=== PATIENT | male | born 1960 | race Caucasian/White ===

== ENCOUNTER 2017-05-11 08:14 | Inpatient (IN) | payer OTHER ==
--- NOTE | 2017-05-11 08:26 | CPEKG ---
Heart Rate: 74 RR Interval: 811 P-R Interval: 192 QRSD Interval: 108 QT Interval: 424 QTC Interval: 471 P [place]: 75 QRS [place]: 95 T Wave [place]: 93 EKG Severity - ABNORMAL ECG - EKG Impression: SINUS RHYTHM EKG Impression: INFEROPOSTERIOR INFARCT, ACUTE Electronically Signed By: Adina Manning 11-May-2017 15:05:16
--- NOTE | 2017-05-11 08:26 | EDPHY ---
H & P Time Seen by Provider: 05/11/17 08:20 HPI/ROS: CHIEF COMPLAINT: Chest pain, dizziness HISTORY OF PRESENT ILLNESS: 56-year-old male with a history of hyperlipidemia presents with chest pain and dizziness. Just prior to arrival he was taking a shower after a workout, when he developed moderate chest discomfort, associated with dizziness. 911 was called. On EMS arrival, EKG revealed a an inferior SC. Cardiac alert was called. He was given aspirin 324 mg orally prior to arrival. He continues to have mild chest discomfort and persistent dizziness. Feels somewhat better. No prior history of cardiac disease. REVIEW OF SYSTEMS: Constitutional: No fever, no chills Eyes: No visual changes ENT: No sore throat Respiratory: No cough, no shortness of breath Gastrointestinal: no vomiting, no abdominal pain Genitourinary: no dysuria Musculoskeletal: No leg pain or swelling Skin: No rash Neurological: No headache, no weakness Psychiatric: Anxiety Past Medical/Surgical History: Hyperlipidemia Social History: Works at [employer] Physical Exam: General Appearance: Alert, pale, appears in pain Eyes: Pupils equal and round, no conjunctival pallor ENT, Mouth: Mucous membranes moist Neck: Normal inspection Respiratory: Lungs are clear to auscultation Cardiovascular: Regular rate and rhythm Gastrointestinal: Abdomen is soft and nontender Neurological: A&O, nonfocal exam Skin: Warm and dry Extremities: Nontender, no pedal edema Psychiatric: Mood and affect normal Constitutional: Initial Vital Signs Heart Rate 72 05/11/17 08:15 Respiratory Rate 18 05/11/17 08:15 Blood Pressure 112/76 05/11/17 08:15 O2 Sat (%) 99 05/11/17 08:15 O2 Delivery Mode Room Air Allergies/Adverse Reactions: No Allergies [NKDA] Allergy (Verified 05/11/17 08:52) Home Medications: Medication Instructions Recorded [place]-3 Fatty Acids [Fish Oil 1000 1,000 mg PO DAILY 05/11/17 mg (*)] Acetaminophen [Tylenol 325mg (*)] 650 mg PO Q4HRS PRN tab 05/13/17 Aspirin EC [Aspirin EC 81 mg (*)] 81 mg PO DAILY tab 05/13/17 Atorvastatin Calcium [Lipitor 40 40 mg PO DAILY #30 tab 05/13/17 mg (*)] Carvedilol [Coreg (*)] 3.125 mg PO BIDMEAL #60 tab 05/13/17 Ticagrelor [Brilinta] 90 mg PO BID #60 tab 05/13/17 Medical Decision Making - Diagnostics EKG Interpretation: EKG interpreted by me reveals ST segment elevation in the inferior leads and ST segment depression in leads V1 through V4, consistent acute inferoposterior SC. ED Course/Re-evaluation: This patient presented as a cardiac alert. Dr. Nolasco and I met the patient on his arrival. Vital signs normal, continues to have persistent chest pain. EKG pre-hospital reveals an acute SC. Repeat EKG in the ED is unchanged. The patient was taken to the emergently to the cardiac catheterization lab within 10 min of his arrival. He remained stable throughout his brief emergency department stay. I spent a total of 15 minutes of critical care time in obtaining history, performing a physical exam, bedside monitoring of interventions, collecting and interpreting tests and discussion with consultants but not including time spent performing procedures. Organ at risk: heart Differential Diagnosis: Differential diagnosis includes though it is not limited to pneumonia, pneumothorax, pulmonary embolism, aortic dissection, pericarditis, acute coronary syndrome. - Data Points Medications Given: Discontinued Medications Acetaminophen (Tylenol) 650 mg PO Q4HRS PRN PRN Reason: Pain, Mild/Fever, Can Take PO Stop: 11/08/17 23:11 Last Admin: 05/12/17 23:43 Dose: 650 mg Aspirin Buffered (Aspirin Ec) 325 mg PO ONCE ONE Stop: 05/11/17 09:38 Last Admin: 05/11/17 12:21 Dose: 325 mg Aspirin Buffered (Aspirin Ec) 81 mg PO DAILY [facility] Stop: 11/08/17 08:59 Last Admin: 05/13/17 08:24 Dose: 81 mg Atorvastatin Calcium (Lipitor) 40 mg PO DAILY [facility] Stop: 11/08/17 08:59 Last Admin: 05/13/17 08:24 Dose: 40 mg Carvedilol (Coreg) 3.125 mg PO BIDMEAL [facility] Stop: 11/07/17 15:29 Last Admin: 05/13/17 08:24 Dose: 3.125 mg Sodium Chloride (Ns) 1,000 mls @ 75 mls/hr IV AD [facility] Stop: 11/07/17 11:29 Last Admin: 05/11/17 10:00 Dose: 1,000 mls Eptifibatide (Integrilin 2 Mg/Ml (Premix)) 81 mls @ 4.5 mls/hr IV AD [facility] Stop: 05/12/17 03:00 Last Admin: 05/11/17 22:17 Dose: 81 mls Influenza Virus Vaccine Quadrival (Fluarix Quad ) 0.5 ml IM .ONCE ONE Stop: 05/12/17 10:01 Last Admin: 05/12/17 10:22 Dose: 0.5 ml Pneumococcal Polyvalent Vaccine (Pneumovax 23) 0.5 ml IM .ONCE ONE Stop: 05/12/17 09:32 Last Admin: 05/12/17 10:21 Dose: 0.5 ml Ticagrelor (Brilinta) 180 mg PO ONCE ONE Stop: 05/11/17 09:38 Last Admin: 05/11/17 12:20 Dose: 180 mg Ticagrelor (Brilinta) 90 mg PO BID [facility] Stop: 11/07/17 21:37 Last Admin: 05/13/17 08:24 Dose: 90 mg Departure - Departure Disposition: [facility] Acute Clinical Impression: Acute coronary syndrome Condition: Good
[2017-05-11] MEDS ORDERED: BIVALIRUDIN 250 MG/5 ML VIAL IV ONE (08:31)
[2017-05-11] MEDS ORDERED: ATROPINE SULFATE 1 MG/10 ML SYR ONE (08:43)
[2017-05-11] MEDS ORDERED: EPTIFIBATIDE 200 MG/100 ML BOTTLE IV ONE (08:45)
[2017-05-11] MEDS ORDERED: NITROGLYCERIN 1,500 MCG/15 ML VIAL MISC ONE (08:58)
[2017-05-11 09:03] LABS: % IMMATURE GRANULYOCYTES 0.5 % (0.0-1.1); ABSOLUTE IMMATURE GRANULOCYTES 0.03 10^3/uL (0.00-0.10); ADD DIFF? NO; ADD MORPH? NO; ADD SCAN? NO; ATYPICAL LYMPHOCYTE FLAG 10 (0-99); FRAGMENT RBC FLAG 0 (0-99); HEMOGLOBIN 14.4 g/dL (13.7-17.5); LEFT SHIFT FLG 0 (0-99); LIPEMIA HEMOLYSIS FLAG 90 (0-99); MEAN CELL HEMOGLOBIN 32.8 pg (27.9-34.1); MEAN CELL VOLUME 91.1 fL (81.5-99.8); MEAN PLATELET VOLUME 8.4 fL (8.7-11.7); PLATELET CLUMPS FLAG 0 (0-99); PLATELET COUNT 216 10^3/uL (150-400); RED BLOOD CELL COUNT 4.39 10^6/uL (4.40-6.38); RED CELL DISTRIBUTION WIDTH 11.7 % (11.5-15.2)
[2017-05-11] MEDS ORDERED: IOPAMIDOL (ISOVUE-370) 150 ML BTL IV ONE ×2 (09:06→09:35)
[2017-05-11 09:19] LABS: INR 4.23 (0.83-1.16); PROTIME(PATIENT) 40.3 SEC (12.0-15.0)
[2017-05-11 09:21] LABS: APTT 99.8 SEC (23.0-38.0)
[2017-05-11] MEDS ORDERED: TICAGRELOR 90 MG TAB ONE (09:30)
[2017-05-11] MEDS ORDERED: fentaNYL 100 MCG/2 ML INJ ONE (09:34)
[2017-05-11] MEDS ORDERED: LIDOCAINE 1% 300 MG/30 ML SDV ONE (09:34)
[2017-05-11] MEDS ORDERED: MIDAZOLAM 2 MG/2 ML VIAL ONE (09:35)
[2017-05-11] MEDS ORDERED: TEMAZEPAM 15 MG CAP PO PRN (09:37)
[2017-05-11] MEDS ORDERED: ONDANSETRON 4 MG/2 ML VIAL IVP PRN (09:37)
[2017-05-11] MEDS ORDERED: NITROGLYCERIN 0.4 MG BTL SL PRN (09:37)
[2017-05-11] MEDS ORDERED: TICAGRELOR 90 MG TAB PO ONE (09:37)
[2017-05-11] MEDS ORDERED: ASPIRIN EC 325 MG TAB PO ONE (09:37)
[2017-05-11] MEDS ORDERED: ATROPINE SULFATE 1 MG/10 ML SYR IVP PRN (09:37)
[2017-05-11] MEDS ORDERED: LORazepam 2 MG/ML INJ IVP PRN (09:37)
[2017-05-11 09:41] LABS: ALANINE AMINOTRANSFERASE 25 IU/L (21-72); ALBUMIN 3.2 g/dL (3.5-5.0); ALKALINE PHOSPHATASE 41 IU/L (38-126); ANION GAP 18 mEq/L (8-16); ASPARTATE AMINOTRANSFERASE 19 IU/L (17-59); BILIRUBIN,TOTAL 0.4 mg/dL (0.1-1.4); CALCIUM 8.3 mg/dL (8.5-10.4); CARBON DIOXIDE 17 mEq/l (22-31); CHLORIDE 101 mEq/L (97-110); CREATININE 0.9 mg/dL (0.7-1.3); GLOMERULAR FILTRATION RATE > 60; GLUCOSE 146 mg/dL (70-100); POTASSIUM 3.9 mEq/L (3.5-5.2); SODIUM 136 mEq/L (134-144); TOTAL PROTEIN 5.4 g/dL (6.3-8.2)
[2017-05-11 09:46] LABS: TROPONIN I < 0.012 ng/mL (0.000-0.034)
--- NOTE | 2017-05-11 10:22 | CPIP ---
[f rep st] INVASIVE CARDIAC PROCEDURE DATE OF PROCEDURE: 05/11/2017 PROCEDURE PERFORMED: 1. Coronary angiography. 2. Left ventricular end-diastolic pressure. 3. Stenting of right coronary artery with Synergy drug-eluting stent. INDICATIONS: Acute inferior ST segment elevation and myocardial infarction. ACCESS: The patient was prepped and draped in a sterile fashion. 1% lidocaine was used to anestheti ze the right inguinal region. A 6-Gambian introducer sheath was placed selectively into the right com mon femoral artery via modified Seldinger technique. A 6-Gambian introducer sheath was placed selecti vely into the right common femoral vein via modified Seldinger technique. CORONARY ANGIOGRAPHY: A 6-Gambian JL4 was advanced to the left main coronary artery, and images obtai ana. The left main coronary artery bifurcated into the LAD and circumflex coronary arteries. The le ft main coronary artery appeared normal. The left anterior descending coronary artery gave rise to 2 diagonal branches. The left anterior anthony cending coronary artery was free of any significant disease. In the midvessel, a myocardial bridge c ould be appreciated. The diagonal arteries were free of any significant disease. Circumflex coronary artery was a moderate-sized vessel. The circumflex coronary artery gave rise to 3 branches. The circumflex coronary artery appeared normal. A 6-Gambian JR4 catheter was advanced to the right coronary artery, and images obtained. The right co ronary artery was 100% occluded in the midvessel. Left ventricular end-diastolic pressure: A 6-Gambian pigtail catheter was advanced into the left vent ricle, and left ventricular end-diastolic pressure obtained. Left ventricular end-diastolic pressure was 24 mmHg; however, it was likely 20 mmHg given drifting of 0. Left ventriculography was not perf ormed in an effort to spare contrast. Percutaneous coronary intervention of the right coronary artery: A 6-Gambian JR4 was advanced to the right coronary artery, and images obtained. Angiography confirmed the presence of a total occlusion in the midvessel. A loose wire was placed in the distal vessel, and position verified by angiography . A 2.5 x 15 Emerge balloon was used to pre-dilate the lesion, followed by angiography that demonstr ated congregation of HORACE-3 flow with significant residual stenosis. A 3.5 x 24 Synergy drug-eluting stent was then placed across the lesion and deployed, followed by angiography demonstrating complete stent expansion and HORACE-3 flow. The stent was post-dilated with a 4.5 x 15 noncompliant balloon, fo llowed by a 5.0 x 15 noncompliant balloon. Followup angiography demonstrating HORACE-3 flow. No resid ual stenosis. In the right posterolateral branch, there was evidence of distal embolization of throm bus. The loose wire was placed in the right posterolateral branch. An attempt was made at thrombect jumana using a Pronto catheter. The Pronto catheter would not reach the distal thrombus. It was decide d to halt intervention and manage with antithrombotic therapy. COMPLICATIONS: None. CONCLUSIONS: 1. Single-vessel coronary artery disease. 2. Status post successful percutaneous coronary intervention of the right coronary artery using Syne rgy drug-eluting stent. /[id number]/MODL
--- NOTE | 2017-05-11 10:38 | GCON ---
[f rep st] CONSULTATION DATE OF CONSULTATION: 05/11/2017 CHIEF COMPLAINT: We have been asked by Dr. Manning to evaluate the patient with an acute inferior ST-se gment elevation myocardial infarction. HISTORY OF PRESENT ILLNESS: The patient is a 56-year-old gentleman with risk factors including age a nd hyperlipidemia, who presents with a chief complaint of chest pain. The patient was in his usual [facility] until the morning of admission, when he went to do his usual workout. Following his [facility] workout, he took a shower, where he began to feel lightheaded and dizzy, followed by the onset of chest pressure and diaphoresis. When his symptoms did not resolve, he called EMS and was brought to the emergency department for further evaluation. In the emergency department, he had an EKG perform ed, demonstrating acute inferior ST-segment elevation myocardial infarction. The patient denies a hi story of hypertension, diabetes and tobacco use. He does report a family history of coronary artery disease at a later age onset. PAST MEDICAL HISTORY: Hyperlipidemia. MEDICATIONS: None. ALLERGIES: No known drug allergies. SOCIAL HISTORY: The patient does not smoke. FAMILY HISTORY: Notable for coronary artery disease at a later age onset, as well as hypertension an d diabetes. REVIEW OF SYSTEMS: Ten-point review of systems was not obtained given acute nature of illness. PHYSICAL EXAMINATION: GENERAL: The patient was resting in bed. He appeared to be in moderate distr ess. VITAL SIGNS: Temperature was not obtained. Pulse was 72, blood pressure 112/76. SaO2 was 99% on room air. LUNGS: Clear to auscultation bilaterally. CARDIOVASCULAR: Regular rate and rhythm. S1, S2. Positive S4. EXTREMITIES: No clubbing, cyanosis, or edema. 2+ dorsalis pedis pulses. EKG demonstrates sinus rhythm, inferior ST-segment elevation with reciprocal changes across the preco rdium. Laboratory has not returned yet. ASSESSMENT AND PLAN: The patient is a 56-year-old gentleman with an acute inferior ST-segment elevat ion myocardial infarction. Reviewed risks and benefits of cardiac catheterization to further evaluat e his condition. Will arrange to have this performed emergently. /[id number]/MODL
--- NOTE | 2017-05-11 11:21 | CPEKG ---
Heart Rate: 70 RR Interval: 857 P-R Interval: 204 QRSD Interval: 102 QT Interval: 420 QTC Interval: 454 P [place]: 80 QRS [place]: -27 T Wave [place]: 56 EKG Severity - ABNORMAL ECG - EKG Impression: SINUS RHYTHM EKG Impression: PROBABLE INFERIOR INFARCT, AGE INDETERMINATE Electronically Signed By: Jamaal Yu 11-May-2017 23:11:51
[2017-05-11] MEDS ORDERED: EPTIFIBATIDE 100 ML IV SCH ×2 (11:30→16:30)
[2017-05-11] MEDS ORDERED: NS 1,000 ML IV SCH (11:30)
[2017-05-11 13:23] LABS: ANION GAP 9 mEq/L (8-16); CALCIUM 8.7 mg/dL (8.5-10.4); CARBON DIOXIDE 22 mEq/l (22-31); CHLORIDE 104 mEq/L (97-110); CREATININE 0.8 mg/dL (0.7-1.3); GLOMERULAR FILTRATION RATE > 60; GLUCOSE 97 mg/dL (70-100); POTASSIUM 4.6 mEq/L (3.5-5.2); SODIUM 135 mEq/L (134-144)
[2017-05-11 13:59] LABS: CK-MB INTERPRETATION POSITIVE (NEGATIVE)
[2017-05-11] MEDS: CARVEDILOL 3.125 MG TAB PO SCH ×2 (15:32→21:06)
--- NOTE | 2017-05-11 16:18 | ECHO ---
[email or web address] [address] [address] Main: [phone] Fax: Transthoracic Echocardiogram Name: NATALIO CHAUHAN MR#: [id number] Study Date: 05/11/2017 Study Time: 01:59 PM Date of : 1960 Age: 56 year(s) Height: 180.3 cm (71 in.) Weight: 70.31 kg (155 lb.) BSA: 1.89 m2 Gender: Male Examination: Echo Indication: Chest pain/Eval LV function Image Quality: Contrast: Requested by: Damian Abdul BP: 113 mmHg/85 mmHg Heart Rate: Rhythm: Indication: Chest pain/Eval LV function Procedure Staff Business Continuity Planner: Mariana Haile Reading Physician: Damian Abdul Requesting Provider: Conclusions: Normal size left ventricle. The ejection fraction is estimated to be 45-50 %. Basal/mid inferior and posterior segments are hypokinetic.. The mitral valve is normal in appearance and function. Trivial mitral valve regurgitation. The aortic valve is normal in appearance and function. No old studies for comparison. Measurements: Chambers Valvular Assessment AV/MV Valvular Assessment TV/PV Normal Normal Normal Name Value Range Name Value Range Name Value Range Ao Linda (MM): 3.7 cm (2.2 cm-3.7 AV meanP mmHg ( - ) cm) MV E Vmax: 0.43 m/s ( - ) IVSd (2D): 0.7 cm (0.6 cm-1.1 MV A Vmax: 0.49 m/s ( - ) cm) MV E/A: 0.88 ( - ) LVDd (2D): 4.8 cm (4.2 cm-5.9 cm) LVDs (2D): 3.1 cm (2.1 cm-4 cm) LVPWd (2D): 0.8 cm (0.6 cm-1 cm) LVEF (BP): 60 % (>=55 %) EF Range: 45-50 % Continued Measurements: Chambers Valvular Assessment AV/MV Name Value Name Value LADs Lon.5 cm MV E/E' Septal: 6.60 Patient: NATALIO CHAUHAN Study Date: 05/11/2017 Page 1 of 2 01:59 PM LA Area: 13.2 cm2 MV E/E' Lateral: 4.30 Additional Vessels Name Value Ao Ascendin.1 cm Findings: Left Ventricle: Normal size left ventricle. No LV hypertrophy. The ejection fraction is estimated to be 45-50 %. Basal/mid inferior and posterior segments are hypokinetic.. Right Ventricle: Normal size right ventricle. Left Atrium: The left atrium is normal in size. Right Atrium: The right atrium is normal in size. Mitral Valve: The mitral valve is normal in appearance and function. Trivial mitral valve regurgitation. Aortic Valve: The aortic valve is normal in appearance and function. Tricuspid Valve: The tricuspid valve is normal in appearance and function. Trivial to mild tricuspid valve regurgitation. Pulmonic Valve: The pulmonic valve is normal in appearance and function. Aorta: The aorta is normal. Pericardium: Trivial anterior pericardial effusion. (No Signature Object) Patient: NATALIO CHAUHAN Study Date: 05/11/2017 Page 2 of 2 01:59 PM [id number]
[2017-05-11] MEDS ORDERED: CARVEDILOL 3.125 MG TAB PO SCH (18:00)
--- NOTE | 2017-05-11 20:41 | GCON ---
[f rep st] CONSULTATION PULMONARY/CRITICAL CARE CONSULTATION DATE OF CONSULTATION: 05/11/2017 REFERRING PHYSICIAN: Damian Nolasco MD REASON FOR REFERRAL: Evaluation and management of metabolic acidosis in the setting of an acute myoc ardial infarction. HISTORY: The patient is a 56-year-old gentleman who was in his usual state of excellent health when this morning he had the onset of lightheadedness and dizziness followed by chest pressure and diaphor esis following exercise and a shower. He was brought to the emergency department for further evaluati on where he was found to have an acute inferior ST-segment elevation myocardial infarction. He was ta laina to the catheterization lab for Dr. Nolasco, identified a dominant right coronary artery occlusion which was treated with angioplasty. There were some small distal clots seen during the procedure, as well as some transient hypotension that responded to IV fluids and revascularization. He has had no s ignificant arrhythmias following the procedure. He currently states that he had some mild substernal chest discomfort. He denies shortness of breath. PAST MEDICAL HISTORY: Hyperlipidemia. MEDICATIONS: Fish oil. SOCIAL HISTORY: He does not smoke. He works at [employer]. FAMILY HISTORY: Unremarkable. REVIEW OF SYSTEMS: A 10-point review of systems adds nothing to the History of Present Illness. PHYSICAL EXAMINATION: GENERAL: The patient is awake, alert, in no acute distress. VITAL SIGNS: Blood pressure is 120/83 with a heart rate of 62. He is afebrile. Oxygen saturations are 99% on 1 L. HEENT : Normocephalic and atraumatic. No icterus. NECK: No adenopathy. Trachea is midline. CHEST: Clear to auscultation. CARDIAC: Regular rate and rhythm without murmur. ABDOMEN: Soft, nontender. Bowel sounds are present. EXTREMITIES: No clubbing, cyanosis, or edema. NEURO: The patient is awake and alert. He has no gross motor or sensory deficits. LABORATORY DATA: A CBC is normal. A chemistry group shows an anion gap of 18 and a carbon dioxide le lawrence that is reduced at 17. A glucose is 146. An initial troponin is less than 0.12, with a repeat tro ponin of 41. TEST DATA: An EKG shows ST segment elevation in the inferior leads with reciprocal changes in the se ptal leads. ECG tracing reviewed by me. ASSESSMENT: 1. Acute inferior myocardial infarction. The patient is status post revascularization. The procedure was complicated by some transient hypotension as well as brief hypotension and small volume of dista l embolization. The patient currently has minimal symptoms and is hemodynamically stable. 2. Anion gap metabolic acidosis. This is likely due to poor tissue perfusion at the time of his acut e myocardial infarction. A repeat chemistry group shows that his anion gap has closed from 18 down to 9. RECOMMENDATIONS: 1. Continue post-AL care, including Coreg and aspirin. His sheath has been removed and he should be able to start to sit up soon. 2. No further treatment necessary for the acute anion gap metabolic acidosis. /[id number]/MODL
[2017-05-11] MEDS: TICAGRELOR 90 MG TAB PO SCH (21:05)
[2017-05-12 06:17] LABS: % IMMATURE GRANULYOCYTES 0.3 % (0.0-1.1); ABSOLUTE IMMATURE GRANULOCYTES 0.03 10^3/uL (0.00-0.10); ADD DIFF? NO; ADD MORPH? NO; ADD SCAN? NO; ATYPICAL LYMPHOCYTE FLAG 0 (0-99); FRAGMENT RBC FLAG 0 (0-99); HEMATOCRIT 39.3 % (40.0-51.0); HEMOGLOBIN 14.5 g/dL (13.7-17.5); LEFT SHIFT FLG 0 (0-99); LIPEMIA HEMOLYSIS FLAG 90 (0-99); MEAN CELL HEMOGLOBIN 33.3 pg (27.9-34.1); MEAN CELL HEMOGLOBIN CONCENTR. 36.9 g/dL (32.4-36.7); MEAN CELL VOLUME 90.3 fL (81.5-99.8); MEAN PLATELET VOLUME 8.5 fL (8.7-11.7); PLATELET CLUMPS FLAG 0 (0-99); PLATELET COUNT 221 10^3/uL (150-400); RED BLOOD CELL COUNT 4.35 10^6/uL (4.40-6.38)
[2017-05-12 06:32] LABS: ALANINE AMINOTRANSFERASE 59 IU/L (21-72); ALBUMIN 3.2 g/dL (3.5-5.0); ALKALINE PHOSPHATASE 36 IU/L (38-126); ANION GAP 9 mEq/L (8-16); ASPARTATE AMINOTRANSFERASE 265 IU/L (17-59); BILIRUBIN,TOTAL 0.8 mg/dL (0.1-1.4); BILIRUBIN-CONJUGATED 0.2 mg/dL (0.0-0.5); BILIRUBIN-UNCONJUGATED 0.6 mg/dL (0.0-1.1); CALCIUM 8.4 mg/dL (8.5-10.4); CARBON DIOXIDE 20 mEq/l (22-31); CHLORIDE 105 mEq/L (97-110); CHOLESTEROL 187 mg/dL (140-220); CHOLESTEROL/HDL RATIO 4.56 RATIO (1.00-4.97); CREATININE 0.7 mg/dL (0.7-1.3); GLOMERULAR FILTRATION RATE > 60; GLUCOSE 123 mg/dL (70-100); HIGH DENSITY LIPOPROTEIN 41 mg/dL (40-65); LDL/HDL RATIO 3.07 RATIO (1.00-3.64); LOW DENSITY LIPOPROTEIN 126 mg/dL (80-100); NON-HIGH DENSITY LIPOPROTEIN 146 mg/dL (90-129); POTASSIUM 3.8 mEq/L (3.5-5.2); SODIUM 134 mEq/L (134-144); TOTAL PROTEIN 5.6 g/dL (6.3-8.2); TRIGLYCERIDE 104 mg/dL (40-150); VERY LOW DENSITY LIPOPROTEINS 20 mg/dL (8-25)
[2017-05-12 07:03] LABS: CK-MB INTERPRETATION POSITIVE (NEGATIVE)
[2017-05-12] MEDS: CARVEDILOL 3.125 MG TAB PO SCH ×2 (07:36→17:32)
[2017-05-12] MEDS: TICAGRELOR 90 MG TAB PO SCH ×2 (07:36→20:48)
[2017-05-12] MEDS: ASPIRIN EC 81 MG TAB PO SCH (07:36)
--- NOTE | 2017-05-12 09:15 | CPEKG ---
Heart Rate: 59 RR Interval: 1017 P-R Interval: 192 QRSD Interval: 94 QT Interval: 468 QTC Interval: 464 P [place]: 74 QRS [place]: -68 T Wave [place]: -66 EKG Severity - ABNORMAL ECG - EKG Impression: SINUS RHYTHM EKG Impression: LEFT ANTERIOR FASCICULAR BLOCK EKG Impression: ABNORMAL T, CONSIDER ISCHEMIA, DIFFUSE LEADS EKG Impression: CANNOT RULE OUT INFERIOR INFARCTION RECENT OR ACUTE Electronically Signed By: Jamaal Yu 13-May-2017 20:49:00
[2017-05-12] MEDS: ATORVASTATIN CALCIUM 40 MG TAB PO SCH (09:27)
[2017-05-12] MEDS ORDERED: PNEUMOCOCCAL 0.5ML VACCINE VIAL IM ONE (09:31)
[2017-05-12] MEDS ORDERED: FLU VACC QS 2017-18 (3YR+)/PF 0.5 ML SYR (FLUARIX QUAD) IM ONE (10:00)
--- NOTE | 2017-05-12 11:54 | ASMTCMCOM ---
CM Note CM Note Notes: 05/12/2017 Case Management Note Reviewed chart. Pt admitted for [place] under cardiac alert status and was taken to lab asst yesterday. There are no case management d/c needs identified d/t pt marital status, employment and activity levels prior to admission. There are no PT or OT evals ordered. Case Management d/c poc: Home independent when medically stable with follow up as directed. Case Management available if needs change. Date Signed: 05/12/2017 11:53 AM Electronically Signed By:Cynthia Kemp RN
--- NOTE | 2017-05-12 13:26 | SOAPPROG ---
[facility] Progress Note Assessment/Plan: 1. CAD - Pt presented with an inferior STEMI. He was treated with PCI of his RCA using a synergy MAI. Peak CPK 2338. LVEF = 45 to 50%. No angina or CHF. + NSVT on telemetry monitoring. --> Continue asa, brilinta, and coreg --> Start lipitor --> No LESLIE or ARB secondary to low BP 2. Hyperlipidemia - LDL is 126. Goal is less than 70. Pt reports ADR to [facility]. --> Start lipitor 40 mg daily 3. HTN - BP well controlled Subjective: No chest pain No orthopnea or PND ambulating with out difficulty. Multiple questions regarding event. Objective: Vital Signs Temp Pulse Resp BP Pulse Ox 36.8 C 61 19 117/82 H 97 05/12/17 12:00 05/12/17 12:00 05/12/17 12:00 05/12/17 12:00 05/12/17 12:00 Laboratory Results 05/12/17 06:00 05/12/17 06:00 05/11/17 05/12/17 05/13/17 05:59 05:59 05:59 Intake Total 3604.1 Output Total 1450 Balance 2154.1 PT 40.3 SEC (12.0-15.0) H 05/11/17 08:54 INR 4.23 (0.83-1.16) H 05/11/17 08:54 Physical Exam - Physical Exam General Appearance: alert, no apparent distress Respiratory: lungs clear Cardiac/Chest: regular rate, rhythm Abdomen: normal bowel sounds, non-tender, soft Extremities: other (No hematoma or echymosis), No pedal edema Neuro/Psych: alert, oriented x 3 ICD10 Worksheet Patient Problems: Problems Problem Status Onset Acute coronary syndrome Acute
[2017-05-12] MEDS ORDERED: ACETAMINOPHEN 325 MG TAB PO PRN (23:12)
[2017-05-12 23:17] VITALS: RESP 18
[2017-05-13 00:11] LABS: COLOR PALE YELLOW; LEUKOCYTE ESTERASE,URINE NEGATIVE (NEGATIVE); NITRITE,URINE NEGATIVE (NEGATIVE)
[2017-05-13 00:12] LABS: WBC,URINE NONE SEEN /hpf (0-3)
[2017-05-13] MEDS: TICAGRELOR 90 MG TAB PO SCH (08:24)
[2017-05-13] MEDS: CARVEDILOL 3.125 MG TAB PO SCH (08:24)
[2017-05-13] MEDS: ASPIRIN EC 81 MG TAB PO SCH (08:24)
[2017-05-13] MEDS: ATORVASTATIN CALCIUM 40 MG TAB PO SCH (08:24)
[2017-05-13 11:47] VITALS: BP 115/78; PULSE 61; TEMP 98.1; O2SAT 97
--- NOTE | 2017-05-13 16:54 | ASDISCHSUM ---
Discharge Information Plan Status:Home with No Needs Medically Cleared to Leave:05/12/2017 Discharge Date:05/13/2017 01:40 PM CM D/C Disposition:Home, Routine, Self-Care ADT D/C Disposition:Home, Routine, Self-Care Projected Discharge Date:05/13/2017 12:00 AM Transportation at D/C: Discharge Delay Reason: Follow-Up Date:05/13/2017 12:00 AM Discharge Slot: Final Diagnosis: Placement Information Patient Contact Information Contact Name:USHA Relationship: Address: Work Phone: City: [facility] Phone: State/[place] Code: Email: Financial Information Financial Class:[employer] Primary Plan Desc:[employer] LOCAL Primary Plan Number:[id number] Secondary Plan Desc: Secondary Plan Number: Assessment Information [facility] CM Progress Note CM Note CM Note Notes: 05/12/2017 Case Management Note Reviewed chart. Pt admitted for OR under cardiac alert status and was taken to lab intern yesterday. There are no case management d/c needs identified d/t pt marital status, employment and activity levels prior to admission. There are no PT or OT evals ordered. Case Management d/c poc: Home independent when medically stable with follow up as directed. Case Management available if needs change. Date Signed: 05/12/2017 11:53 AM Electronically Signed By:Cynthia Kemp RN Intervention Information
[2017-05-14] MEDS ORDERED: NON-FORMULARY NEW DRUG (Omega-3 Fatty Acids [Fish Oil 1000 Mg (*)] 1,000 MG) PO SCH (09:00)
[2017-05-14] MEDS ORDERED: OMEGA-3 FATTY ACIDS 1,000 MG CAP PO SCH (09:00)
--- NOTE | 2017-05-17 05:44 | GDS ---
[f rep st] DISCHARGE SUMMARY ADMISSION DIAGNOSES: 1. Chest pain. 2. Inferior myocardial infarction. 3. Hyperlipidemia. DISCHARGE DIAGNOSES: 1. Status post ST-elevation myocardial infarction. 2. Status post angiogram with Drug Eluding stent. 3. Hyperlipidemia. HOSPITAL COURSE: This gentleman was brought into the emergency room after experiencing chest pain and dizziness with onset after showering post exercise workout. On arrival to the emergency room, EKG revealed an inferior NV. Cardiac alert was called. He was taken directly to the cardiac cath lab radiological technologist where Dr. Damian Nolasco performed emergent angiogram and stenting of the right coronary artery with Synergy drug-eluting stent. Left main artery was normal. Left anterior descending coronary artery gave rise to 2 diagonal branches. The left anterior descending coronary artery was free of significant disease. In the mid vessel, a myocardial bridge could be appreciated. The diagonal arteries were free of any significant disease. Circumflex coronary artery was a moderate sized vessel which appeared normal. The right coronary artery was 100 % occluded in the mid vessel. Successful angiogram with stent placement to the right coronary artery with no complications. In the right posterolateral branch , there was evidence of distal embolization of thrombus. An attempt was made at thrombectomy. However, the Pronto catheter would not reach the distal thrombus. It was decided to intervene and manage with antithrombotic therapy. Conclusion: 1. Single-vessel coronary artery disease. 2. Status post successful percutaneous coronary intervention of the right coronary artery using Synergy drug-eluting stent. He was taken to the ICU for observation where he has done well. He had an LVEF of 45% to 50%. No angina or congestive heart failure was appreciated on telemetry monitoring. He is managed on aspirin, Brilinta, and Coreg, and will plan to start Lipitor. No LESLIE or ARB secondary to low blood pressure. He does have hyperlipidemia, LDL at 126. Goal is less than 70. He reported ADR to [facility]. He was started on Lipitor 40 mg daily. His blood pressure remained well controlled throughout his stay. He was transferred to telemetry on the 2nd night where he has done well. He has been up, ambulating. school lunch monitor has shown no arrhythmias. At this time, he currently is stable for discharge. ALLERGIES: He has no allergies. MEDICATIONS: He will go home on fish oil 1,000 mg daily; Tylenol 325 mg to 650 mg every 4 hours as needed for pain, not to exceed 3 g daily; aspirin 81 mg daily; Lipitor 40 mg daily; carvedilol 3.125 mg twice daily; Brilinta 90 mg twice daily. PHYSICAL EXAMINATION: VITAL SIGNS: On day of discharge, blood pressure 115/78 , heart rate regular at 61, temperature 36.7. EKG shows normal sinus rhythm with idioventricular conduction delay. HEART: Rate regular. No murmurs, rubs , gallops. LUNGS: Sounds are clear to auscultation. No wheezes, rales, or rhonchi. EXTREMITIES: Right groin site is intact with no bleeding, induration , or ecchymosis. No femoral bruit is noted. Pulses are 2+ bilaterally with no edema. LABORATORY DATA: His troponin peaked at 51.7. His lipids on 05/12/2017: Total cholesterol 187, triglycerides 104, HDL 41, LDL 126. PLAN: He will follow up with Dr. Nolasco in 7-10 days. He will participate in cardiac rehab at [facility]. Groin site instructions were given for 1 week. No lifting, pushing, pulling greater than 10 pounds. No tub bath. Okay to shower. Should groin site bleed, hold firm, continuous pressure , call emergency services, and go to the nearest emergency room. He will follow up with Dr. Nolasco in 7-10 days. He is to follow a low-fat, low-sodium, [id number] mg diet. He can go out for short walk, 1-2 blocks and back home, during the 1st couple days, then gradually increase distance. He will then enter cardiac rehab for progression of exercise. At this time, he currently is stable for discharge. /[id number]/MODL MTDD
== END 2017-05-13 13:40 | disposition home or self-care (01) | DRG 247 ==
LOC: EDUNIT# → F2N 09:37 → F2W 05-12 18:37
PROVIDERS: ADMIT Internal Medicine Cardiovascular Disease; ATTEND Internal Medicine Cardiovascular Disease
PROC: B2151ZZ Fluoroscopy of Left Heart using Low Osmolar Contrast (ICD-10-PCS; principal; 2017-05-11)
PROC: 027034Z Dilation of Coronary Artery, One Artery with Drug-eluting Intraluminal Device, Percutaneous Approach (ICD-10-PCS; principal; 2017-05-11)
PROC: B2111ZZ Fluoroscopy of Multiple Coronary Arteries using Low Osmolar Contrast (ICD-10-PCS; principal; 2017-05-11)
DX: I21.19 ST elevation (STEMI) myocardial infarction involving other coronary artery of inferior wall (principal); E78.5 Hyperlipidemia, unspecified; I25.10 Atherosclerotic heart disease of native coronary artery without angina pectoris; Z23 Encounter for immunization
CPT/HCPCS: C1725; C1757; C1760; C1769; C1874; C1887; C9606; G0008; G0009; J0461; J0583; J1327; J1644; J2250; J3010; Q9967